=== PATIENT | male | born 1935 | race Caucasian/White ===

== ENCOUNTER 2017-10-19 13:02 | Emergency (ER) | payer MEDICARE, OTHER ==
[~2017-10-19] VITALS: Ht 182.9 cm; Wt 96.2 kg
[~2017-10-19 13:02] MED LIST: GAS-X80 MG PO; GUAIATUSSIN AC10 ML PO; NORCO 5-325 TA1 EACH PO; ZOFRAN4 MG PO
[2017-10-19] MEDS ORDERED: TYLENOL325 MG PO (13:14)
[2017-10-19] MEDS ORDERED: ASPIR-LOW81 MG PO (13:15)
--- OUTSIDE RECORDS SUMMARY | 2017-10-19 13:27 | XMS | Clinical Summary ---
Demographics + + + | Address | [address] [place] [address] | | | [place] [address] | + + + | Home Phone | | + + + | Preferred Language | Unknown | + + + | Marital Status | | + + + | Religion Affiliation | JEH | + + + | Race | White | + + + | Ethnic Group | Not or | + + + Author + + + | Author | [facility] | + + + | Organization | [facility] | + + + | Address | Unknown | + + + | Phone | Unavailable | + + + Support + + + + + | Name | Relationship | Address | Phone | + + + + + | AGATA ANNE | ECON | [address] | | | | | [place] | | | | | [address] | | + + + + + Care Team Providers + +------+ + | Care Debate Director Name | Role | Phone | + +------+ + | Angel Carver MD | PP | | + +------+ + Source Comments MASHA is fully live on both [facility] Allergies + + + + + + | Active Allergy | Reactions | Severity | Noted | Comments | | | | | Date | | + + + + + + | Penicillins | Hives | | 03/15/20 | | | | | | 09 | | + + + + + + Current Medications + + +-------+---------+------+------+-------+ | Prescription | Sig. | Disp. | Refills | Star | End | Statu | | | | | | t | Date | s | | | | | | Date | | | + + +-------+---------+------+------+-------+ | Aspirin 81 mg Oral | Take 325 mg by mouth | | | | | Activ | | Tablet | once daily. | | | | | e | + + +-------+---------+------+------+-------+ | OMEPRAZOLE | Take by mouth. | | | | | Activ | | (PRILOSEC ORAL) | | | | | | e | + + +-------+---------+------+------+-------+ | ondansetron 8 mg | Take 1 Tab by mouth | 30 | 10 | 08/1 | | Activ | | Oral Tablet | every eight hours as | | | 1/20 | | e | | | needed for | | | 09 | | | | | nausea/vomiting. 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 | + + + | Cholelithiasis with cholecystitis | 05/19/2009 | + + + | Gastric outlet obstruction | 04/11/2009 | + + + Social History + +-------+ +--------+------+ | Tobacco Use | Types | Packs/Day | Years | Date | | | | | Used | | + +-------+ +--------+------+ | Never Smoker | | | | | + +-------+ +--------+------+ + + +---------+ + | Alcohol Use | Drinks/We | oz/Week | Comments | | | ek | | | + + +---------+ + | No | | | | + + +---------+ + + + + | Sex Assigned at | Date Recorded | | | | + + + | Not on file | | + + + Last Filed Vital Signs + + + + | Vital Sign | Reading | Time Taken | + + + + | Blood Pressure | 124/70 | 06/15/2010 1:01 PM PDT | + + + + | Pulse | 75 | 06/15/2010 1:01 PM PDT | + + + + | Temperature | 36.9 C (98.4 F) | 06/15/2010 1:01 PM PDT | + + + + | Respiratory Rate | 12 | 06/15/2010 1:01 PM PDT | + + + + | Oxygen Saturation | 95% | 05/19/2009 12:55 PM PDT | + + + + | Inhaled Oxygen | - | - | | Concentration | | | + + + + | Weight | 101.1 kg (222 lb | 06/15/2010 1:01 PM PDT | | | 12.8 oz) | | + + + + | Height | 175.3 cm (5' 9") | 05/19/2009 11:43 AM PDT | + + + + | Body Mass Index | 32.9 | 06/15/2010 1:01 PM PDT | + + + + Plan of Treatment + + + + + | Health Maintenance | Due Date | Last Done | Comments | + + + + + | INFLUENZA VACCINE | | | | | (FLU SHOT) | 7 | | | + + + + + Results Not on filefrom Last 3 Months
--- OUTSIDE RECORDS SUMMARY | 2017-10-19 13:27 | XMS | Clinical Summary ---
Demographics + + + | Address | [address] [place] [address] | | | [place] [address] | + + + | Home Phone | | + + + | Preferred Language | Unknown | + + + | Marital Status | | + + + | Muslim Affiliation | JEH | + + + [...] + | AGATA ANNE | ECON | [address] | | | | | [place] | | | | | [phone] | | + + + + + Care Team Providers + +------+ + | Care Rental Sales Representative Name | Role | Phone | + +------+ + | Angel Carver MD | PP | | + +------+ + Source Comments MASHA is fully live on both [facility] and [facility] Allergies + + + + + + [...]
== END 2017-10-19 14:55 | disposition home or self-care (01) ==
LOC: ED 13:02
DX: S00.03XA Contusion of scalp, initial encounter (principal); S20.229A Contusion of unspecified back wall of thorax, initial encounter; Z86.73 Personal history of transient ischemic attack (TIA), and cerebral infarction without residual deficits; Z88.0 Allergy status to penicillin; Z79.82 Long term (current) use of aspirin; Z87.442 Personal history of urinary calculi; W01.0XXA Fall on same level from slipping, tripping and stumbling without subsequent striking against object, initial encounter
CPT/HCPCS: 70450; 72080; 99284

== ENCOUNTER 2021-06-16 17:40 | Emergency (ER) | payer MEDICARE, OTHER ==
[~2021-06-16] VITALS: Ht 182.9 cm; Wt 105.3 kg
[~2021-06-16 17:40] MED LIST changes: +ASPIR-LOW81 MG PO; +TYLENOL325 MG PO
== END 2021-06-16 19:55 | disposition short-term general hospital (02) ==
LOC: ED 17:40
PROC: 0T2BX0Z Change Drainage Device in Bladder, External Approach (ICD-10-PCS; principal; 2021-06-16)
DX: I63.9 Cerebral infarction, unspecified (principal); I48.91 Unspecified atrial fibrillation; R29.704 NIHSS score 4; Z20.822 Contact with and (suspected) exposure to COVID-19; Z88.0 Allergy status to penicillin
CPT/HCPCS: 51702; 70450; 70496; 70498; 71045; 73030; 80053; 84484; 85025; 85610; 85730; 93005; 93010; 99285-25; J2997; Q3014; Q9967; U0003

== ENCOUNTER 2022-12-07 12:45 | Emergency (ER) | payer MEDICARE, OTHER ==
[~2022-12-07] VITALS: Ht 182.9 cm; Wt 105.2 kg
[2022-12-07] MEDS ORDERED: ATORVASTATIN CA20 MG PO (14:23)
[2022-12-07] MEDS ORDERED: ELIQUIS5 MG PO (14:23)
[2022-12-07] MEDS ORDERED: METOPROLOL SUC100 MG PO (14:24)
--- NOTE | 2022-12-07 20:39 | EKG ---
[facility] [address] [facility] [place] [address] Signed Atrial fibrillation with premature ventricular or aberrantly conducted complexes Abnormal ECG No previous ECGs available Confirmed by NELY DIAZ MD ([id number]) on 12/07/2022 8:38:58 PM Electronically Signed By: NELY DAIZ MD 12/07/222038 PATIENT NAME: JAMES CHUNG Electrocardiogram DATE OF : 37 PHYSICIAN: NELY DIAZ MD REPORT #: [id number] REPORT IS CONFIDENTIAL AND NOT TO BE RELEASED WITHOUT AUTHORIZATION
== END 2022-12-07 18:26 | disposition home or self-care (01) ==
LOC: ED 12:45
DX: R55 Syncope and collapse (principal); R00.2 Palpitations; I48.91 Unspecified atrial fibrillation; Z79.899 Other long term (current) drug therapy; Z79.01 Long term (current) use of anticoagulants; Z88.0 Allergy status to penicillin; Z20.822 Contact with and (suspected) exposure to COVID-19
CPT/HCPCS: 36415; 80053; 81003; 83735; 84484; 85025; 87502; 93005; 93010; U0003

== ENCOUNTER 2024-05-11 12:50 | Observation (INO) | payer MEDICARE, OTHER ==
[~2024-05-11] VITALS: Ht 182.9 cm; Wt 98.9 kg
[~2024-05-11 12:50] MED LIST changes: +ATORVASTATIN CA20 MG PO; +ELIQUIS5 MG PO; +METOPROLOL SUC100 MG PO
[2024-05-11 13:05] LABS: BASOPHILS 0.8 % (0-2); HEMATOCRIT 43.1 % (35.0-50.0); HEMOGLOBIN 14.8 g/dL (12.0-18.0); LYMPHOCYTES 27.1 % (24-44); MCHC 34.4 g/dl (30-36); MONOCYTES 11.4 % (0-12); NEUTROPHILS 55.7 % (39-80); PLATELET COUNT 262 K/uL (140-440); RBC 4.64 M/ul (4.3-5.7); RDW 13.9 (10.5-15.0)
[2024-05-11 13:21] LABS: ALBUMIN 3.5 g/dL (3.4-5.0); ALBUMIN/GLOBULIN RATIO 1.09 (1.1-2.4); ANION GAP 10.8 (7-21); BUN/CREATININE RATIO 10.06 (6.0-28.6); CALCIUM 8.9 mg/dL (8.5-10.1); CREATININE, SERUM 1.49 mg/dL (0.70-1.30); MAGNESIUM 1.8 mg/dL (1.8-2.4); POTASSIUM 4.8 mmol/L (3.5-5.1); PROTEIN, TOTAL 6.7 g/dL (6.4-8.2)
[2024-05-11 13:22] LABS: INR 1.4 (0.80-1.30); PROTIME 16.3 Sec (11.2-14.2)
[2024-05-11] MEDS ORDERED: ondansetron HCL 4 MG/2 ML VIAL IV PRN (17:30)
[2024-05-11] MEDS ORDERED: ACETAMINOPHEN 325 MG TAB PO PRN (17:30)
[2024-05-11 18:55] VITALS: BP 131/86
--- NOTE | 2024-05-11 19:00 | NUR ---
PT ARRIVED TO MS ROOM 122 VIA ED STRETCHER - REPORT RECEIVED FROM LOUANN HOLLIDAY. PT PIVOT TRANSFERED TO BED WITH SOME DIZZINESS. PT AND FAMILY ORIENTED TO ROOM AND CALL LIGHT. VSS.
--- NOTE | 2024-05-11 19:01 | EKG ---
[facility] [address] [place] [address] Signed Atrial fibrillation Abnormal ECG When compared with ECG of 07-DEC-2022 14:36, No significant change was found Confirmed by Terence Denise MD () on 05/11/2024 7:01:09 PM Electronically Signed By: TERENCE DENISE MD 05/11/241900 PATIENT NAME: JAMES CHUNG Electrocardiogram DATE OF : 37 PHYSICIAN: TERENCE DENISE MD REPORT #: [id number] REPORT IS CONFIDENTIAL AND NOT TO BE RELEASED WITHOUT AUTHORIZATION
--- NOTE | 2024-05-11 20:31 | NUR ---
Pt report received from MG Coleman at 1858 hours. Pt is resting supine in bed, watching television, requests blanket for his feet, which was provided. Pt assessment done at this time. Pt denies further needs, side rails up x4, call light in reach. white board updated.
[2024-05-11 21:00] VITALS: BP 114/75
--- NOTE | 2024-05-11 21:03 | NUR ---
ROLL HAULER OBTAINED VITALS AND INTAKE. NO NEW OUTPUT NOTED. PT STATES NO NEEDS AT THIS TIME. CALL LIGHT WITHIN REACH.
--- NOTE | 2024-05-11 21:48 | NUR ---
REMAINING ADMISSION COMPLETED AT THIS TIME, pt AWOKE EASILY TO VOICE AND ASSISTED WITH ANSWERING QUESTIONS-GULKANA. PER pt, TOOK HEARING AIDES HOME TO BE CHARGED. WALLET AND WATCH IN pt ROOM LOCKBOX AND pt HAS WEDDING BAND IN PLACE. BED ALARM ON FOR SAFETY AND CALL LIGHT IN REACH. PRIMARY RN UPDATED AND AWARE.
--- NOTE | 2024-05-11 23:30 | NUR ---
PC to Dr. Graham to notify him of CCU's concern about PVCs on the tele for this patient. They advised that at 1955 hours, he had 25 PVCs/min, 2006 hours 18 PVCs/min, and at 2017 hours 19 PVCs/min. Dr. Graham advised we will continue to monitor the pt as he is afib at baseline.
[2024-05-12] VITALS (10 sets, daily range): BP systolic 110–130; BP diastolic 52–80
--- NOTE | 2024-05-12 05:29 | NUR ---
MANUAL TESTER OBTAINED VITALS AND INTAKE. NO NEW OUTPUT AT THIS TIME. PT STATES NO OTHER NEEDS AT THIS TIME. CALL LIGHT WITHIN REACH.
[2024-05-12 05:41] LABS: BASOPHILS 0.8 % (0-2); EOSINOPHILS 4.5 % (0-6); HEMATOCRIT 42.4 % (35.0-50.0); HEMOGLOBIN 14.7 g/dL (12.0-18.0); LYMPHOCYTES 22.3 % (24-44); MCH 32.7 (27-36); MCHC 34.8 g/dl (30-36); MCV 94.1 fl (81-99); MONOCYTES 9.6 % (0-12); NEUTROPHILS 62.8 % (39-80); PLATELET COUNT 230 K/uL (140-440); RBC 4.51 M/ul (4.3-5.7); RDW 13.8 (10.5-15.0)
[2024-05-12 05:56] LABS: ALBUMIN 3.3 g/dL (3.4-5.0); ALBUMIN/GLOBULIN RATIO 1.06 (1.1-2.4); BILIRUBIN, TOTAL 1.2 ng/dL (0.2-1.0); BUN/CREATININE RATIO 9.02 (6.0-28.6); CALCIUM 8.9 mg/dL (8.5-10.1); CREATININE, SERUM 1.44 mg/dL (0.70-1.30); MAGNESIUM 1.8 mg/dL (1.8-2.4); PROTEIN, TOTAL 6.4 g/dL (6.4-8.2)
[2024-05-12 05:58] LABS: CHOLESTEROL/HDL RATIO 2.2
--- NOTE | 2024-05-12 07:20 | NUR ---
RECIEVED SHIFT REPORT. PT IS AWAKE IN BED, A&O X4 AT THIS TIME. DENIES NEEDS. CALL LIGHT IN REACH.
--- NOTE | 2024-05-12 08:11 | NUR ---
Provided warm blanket for Pt and fresh ice water. No other needs expressed by Pt. Call light left in reach.
[2024-05-12] MEDS ORDERED: PHARMACY RENAL DOSE ADJUSTMENT 1 DOSE MISC PO SCH (12:00)
--- NOTE | 2024-05-12 13:53 | NUR ---
IN TO ROUND ON PT AND PERFORM ORTHOSTATIC BLOOD PRESSURE TESTING. PT FELT "FUNNY" SITTING ON SIDE OF BED BUT THE FEELING WENT AWAY. PT DENIES DIZZINESS OR LIGHTHEADEDNESS WHILE STANDING, PT STANDS FULL THREE MINUTES WITHOUT COMPLAINT. PT AMBULATES TO CHAIR WITH FWW. PT HEART RATE NOTED TO RANGE 38-84 THROUGHOUT ORTHOSTATIC TESTING. CALL LIGHT IN REACH, NO OTHER NEEDS NOTED AT THIS TIME.
--- NOTE | 2024-05-12 22:00 | NUR ---
Resting, awakens easily, no c/o CP or SOB, mild weakness L tap puller, alet and oriented to all. Tele#[address] clear lungs, abd large, kandi, LBM today, edema at ankles, SL patent. tolerating liquids well, no c/o dizziness or n/v at this time, turns and repositions self in bed, Has used urinal. in room
[2024-05-13] VITALS (8 sets, daily range): BP systolic 109–129; BP diastolic 57–83
--- NOTE | 2024-05-13 02:36 | NUR ---
awake, no c/o CP, alet and oriented, Neuros wnl, Light L sided weakness chronic present. Up to BRP, voided, back to bed, Pt wears a L knee brace "is chronic" stated, SCDS off at his request at this time. Back to bed, minimum of assist/fww. cooperatie with second assessment. Tele#[address], afib. rooming in
--- NOTE | 2024-05-13 06:17 | NUR ---
pT AWAKENS EASILY, TELE#[address], AFIB. PT DENIES SOB AND OR CP. TURNS AND REPOSITIONS SELF IN BED. SL PATENT. NO C/O DIZZINESS OR LIGHTHEADNESS. TOLERATING SIPS OF FLUIDS. VOIDED QS EARLIER ON SHIFT 1PA/FWW. L SIDED RESIDUAL WEAKNESS PRESENT CHRONIC. NEURO CHECKS WNL OTHERWISE, ALERT AND ORIENTED TO ALL. SMILING NOW AND STILL SLOW RESPONSE TO WUESTIONS, [place], NO HEARING AIDS AT THIS TIME. HOME l KNEE BRACE IN PLACE AT BEDSIDE
--- NOTE | 2024-05-13 08:09 | NUR ---
RECEIVED SHIFT REPORT. PT IS RESTING IN BED, EYES CLOSED, BREATHING EVEN AND UNLABORED.CALL LIGHT IN REACH.
--- NOTE | 2024-05-13 11:03 | NUR ---
MORNING ASSESSMENT COMPLETE. PT FINISHED WITH THERAPY AND HAS NO COMPLAINTS. PT SITTING ON THE SIDE OF THE BED, FAMILY AT BEDSIDE. DENIES NEEDS. CALL LIGHT IN REACH. DISCUSSED WITH PT THAT PHYSICAL THERAPY WILL TALK TO MD REGARDING THERAPY SESSION.
--- NOTE | 2024-05-13 15:00 | NUR ---
IN ROOM WITH MG FLORENTINO TO PERFORM AFTERNOON ASSESSMENT. PATIENT AFFECT APPROPRIATE. A&OX4. SEE NEURO ASSESSMENT. FAMILY IN ROOM. CALL LIGHT IN REACH. PATIENT DENIES ADDITIONAL NEEDS AT THIS TIME.
[2024-05-13] MEDS ORDERED: DERMACINRX LID1 EACH TD (15:25)
--- NOTE | 2024-05-13 15:52 | NUR ---
PATIENT IN BED AT THIS TIME. CALL LIGHT WITHIN REACH, NO FURTHER NEEDS AT THIS TIME.
--- NOTE | 2024-05-13 16:22 | NUR ---
DISCUSSED DISCHARGE PAPERWORK WITH PT AND FAMILY. ALL QUESTIONS ANSWERED. NIH RESULTED 0.
== END 2024-05-13 16:41 | disposition home or self-care (01) ==
LOC: ED 12:50 → MS 12:51
PROVIDERS: Emergency Medicine; ADMIT Family Medicine; ATTEND Family Medicine
DX: G45.9 Transient cerebral ischemic attack, unspecified (principal); I48.91 Unspecified atrial fibrillation; R91.1 Solitary pulmonary nodule; I12.9 Hypertensive chronic kidney disease with stage 1 through stage 4 chronic kidney disease, or unspecified chronic kidney disease; N18.31 Chronic kidney disease, stage 3a; Z88.0 Allergy status to penicillin; Z79.01 Long term (current) use of anticoagulants; Z79.899 Other long term (current) drug therapy
CPT/HCPCS: 36415; 70450; 70496; 70498; 71045; 80053; 80061; 83036; 83735; 84100; 84484; 85025; 85610; 93005; 93010; 93306; 97110; 97162; 97530; 99285-25; G0378

== ENCOUNTER 2024-05-21 16:37 | Emergency (ER) | payer MEDICARE, OTHER ==
[~2024-05-21] VITALS: Ht 182.9 cm; Wt 90.0 kg
[~2024-05-21 16:37] MED LIST changes: +DERMACINRX LID1 EACH TD
--- OUTSIDE RECORDS SUMMARY | 2024-05-21 16:40 | XMS ---
PreManage Notification: JAMES CHUNG Security Hydrogen Cell Tender Events No recent Security Events currently on file CRITERIA MET - [facility] - 2 Visits in 30 Days CARE PROVIDERS There are no care providers on record at this time. Amanda has no Care Guidelines for this patient. Kasey VISIT COUNT (12 MO.) 2 [facility] [place] [facility] TOTAL 2 NOTE: Visits indicate total known visits. ED/C VISIT TRACKING (12 MO.) 05/21/2024 16:37 [facility] [place] TYPE: Emergency COMPLAINT: - WEAKNESS 05/11/2024 12:50 [facility] [place] TYPE: Emergency COMPLAINT: - DIZZY INPATIENT VISIT TRACKING (12 MO.) 05/11/2024 12:51 [facility] [place] TYPE: Observation COMPLAINT: - DIZZINESS DIAGNOSES: - Allergy status to penicillin - Chronic kidney disease, stage 3a - Dizziness and giddiness - Hypertensive chronic kidney disease with stage 1 through stage 4 chronic kidney disease, or unspecified chronic kidney disease - FDC (current) use of anticoagulants - Other termite treater helper (current) drug therapy - Solitary pulmonary nodule - Transient cerebral ischemic attack, unspecified - Unspecified atrial fibrillation [email or web address]
[2024-05-21] MEDS ORDERED: SODIUM CHLORIDE 0.9% 1,000 ML IV ONE (16:45)
[2024-05-21] MEDS ORDERED: CEFTRIAXONE/SODIUM CHLORIDE 2 GM/100 ML PIGGYBACK IV ONE (16:45)
[2024-05-21 17:00] LABS: BASOPHILS 0.3 % (0-2); EOSINOPHILS 1.4 % (0-6); HEMOGLOBIN 14.8 g/dL (12.0-18.0); LYMPHOCYTES 9.8 % (24-44); MCHC 34.5 g/dl (30-36); MCV 92.7 fl (81-99); MONOCYTES 11.3 % (0-12); NEUTROPHILS 77.2 % (39-80); PLATELET COUNT 249 K/uL (140-440); RBC 4.64 M/ul (4.3-5.7); RDW 13.9 (10.5-15.0)
[2024-05-21] MEDS ORDERED: ACETAMINOPHEN 500 MG TAB PO ONE (17:00)
[2024-05-21] MEDS ORDERED: AZITHROMYCIN/DEXTROSE 500 MG/250 ML BAG IV ONE (17:00)
[2024-05-21] MEDS ORDERED: SODIUM CHLORIDE 0.9% 1,000 ML IV PRN (17:00)
[2024-05-21 17:13] LABS: PARTIAL THROMBOPLASTIN TIME 37.5 Sec (22.9-41.3)
[2024-05-21 17:14] LABS: INR 1.63 (0.80-1.30); PROTIME 18.5 Sec (11.2-14.2)
[2024-05-21 17:20] LABS: ALBUMIN 3.3 g/dL (3.4-5.0); ALBUMIN/GLOBULIN RATIO 0.94 (1.1-2.4); ANION GAP 12.2 (7-21); BILIRUBIN, TOTAL 1.3 ng/dL (0.2-1.0); BUN/CREATININE RATIO 7.74 (6.0-28.6); CALCIUM 8.5 mg/dL (8.5-10.1); CREATININE, SERUM 1.55 mg/dL (0.70-1.30); POTASSIUM 4.2 mmol/L (3.5-5.1); PROTEIN, TOTAL 6.8 g/dL (6.4-8.2)
[2024-05-21 17:23] LABS: LACTIC ACID, BLOOD 2.1 mmol/L (0.4-2.0)
[2024-05-21 18:41] LABS: INFLUENZA B NAA NEGATIVE (NEGATIVE); RESPIRATORY SYNCYTIAL VIR NAA NEGATIVE (NEGATIVE)
[2024-05-21 18:52] LABS: BILIRUBIN, URINE NEGATIVE (negative); BLOOD/HGB, URINE NEGATIVE (Negative); KETONE, URINE NEGATIVE (Negative); LEUK ESTERASE, URINE NEGATIVE (negative); NITRITE, URINE NEGATIVE (negative)
[2024-05-21 19:07] LABS: LACTIC ACID, BLOOD 1.5 mmol/L (0.4-2.0)
[2024-05-21] MEDS ORDERED: PAXLOVID 300-11 EAC1 PO (20:22)
[2024-05-21 21:08] VITALS: BP 118/84
--- NOTE | 2024-05-22 13:52 | EKG ---
[facility] [address] [facility] [place] [address] Signed Atrial fibrillation with rapid ventricular response with premature ventricular or aberrantly conducted complexes Abnormal ECG When compared with ECG of 11-MAY-2024 13:39, No significant change was found Confirmed by Gema Brown MD ([id number]) on 05/22/2024 1:51:59 PM Electronically Signed By: GEMA BROWN MD 05/22/24 1352 PATIENT NAME: JAMES CHUNG Electrocardiogram DATE OF : 37 PHYSICIAN: GEMA BROWN MD REPORT #: [id number] REPORT IS CONFIDENTIAL AND NOT TO BE RELEASED WITHOUT AUTHORIZATION
== END 2024-05-21 21:05 | disposition home or self-care (01) ==
LOC: ED 16:37
PROVIDERS: Emergency Medicine
DX: U07.1 COVID-19 (principal); I48.91 Unspecified atrial fibrillation; Z88.0 Allergy status to penicillin; Z79.01 Long term (current) use of anticoagulants; Z79.899 Other long term (current) drug therapy
CPT/HCPCS: 36415; 51701; 71045; 80053; 81003; 83605; 84484; 85025; 85610; 85730; 87040; 87502; 93005; 93010; 96368; 99285-25; A9270; J0456; J0696; J7030; U0002

== ENCOUNTER 2025-02-15 10:20 | Emergency (ER) | payer MEDICARE, OTHER ==
[~2025-02-15] VITALS: Ht 182.9 cm; Wt 100.0 kg
[~2025-02-15 10:20] MED LIST changes: +PAXLOVID 300-11 EAC1 PO
[2025-02-15 11:15] LABS: BASOPHILS 0.6 % (0.2-1.2); EOSINOPHILS 3.7 % (0.8-7.0); HEMATOCRIT 43.4 % (40.1-51.0); HEMOGLOBIN 14.4 g/dL (13.7-17.5); LYMPHOCYTES 28.1 % (21.8-53.1); MCH 31.1 PG (25.7-32.2); MCHC 33.2 g/dL (32.3-36.5); MCV 93.7 fL (79.0-92.2); MONOCYTES 9.8 % (5.3-12.2); NEUTROPHILS 57.6 % (34.0-67.9); PLATELET COUNT 227 K/uL (163-337); RBC 4.63 M/uL (4.63-6.08)
[2025-02-15 11:31] LABS: ALBUMIN 3.3 g/dL (3.4-5.0); ALBUMIN/GLOBULIN RATIO 1.03 (1.1-2.4); ANION GAP 13.3 (7-21); BILIRUBIN, TOTAL 1.1 mg/dL (0.2-1.0); BUN/CREATININE RATIO 11.65 (6.0-28.6); CALCIUM 8.7 mg/dL (8.5-10.1); CREATININE, SERUM 1.63 mg/dL (0.70-1.30); POTASSIUM 4.3 mmol/L (3.5-5.1); PROTEIN, TOTAL 6.5 g/dL (6.4-8.2)
[2025-02-15 12:39] LABS: BILIRUBIN, URINE NEGATIVE (negative); BLOOD/HGB, URINE TRACE-I (Negative); KETONE, URINE NEGATIVE (Negative); LEUK ESTERASE, URINE TRACE (negative); NITRITE, URINE NEGATIVE (negative); PH, URINE 7.5 (5-7)
[2025-02-15 12:49] LABS: RED BLOOD CELLS, URINE 0-1 /hpf (0-5)
[2025-02-15 12:50] LABS: BACTERIA, URINE NONE SEEN /hpf (negative); CASTS, URINE NONE SEEN \\lpf; COLLECTION TYPE, URINE CLEAN CATCH; CRYSTALS, URINE NONE SEEN (0-1+); EPITHELIAL CELLS, URINE SQUAMOUS 1+ /lpf (0-1+); REFLEX CULTURE, URINE No (No)
[2025-02-15] MEDS ORDERED: FLOMAX0.4 MG PO (13:24)
[2025-02-15 13:46] VITALS: BP 120/78
== END 2025-02-15 13:46 | disposition home or self-care (01) ==
LOC: ED 10:20
PROVIDERS: Emergency Medicine
DX: K59.00 Constipation, unspecified (principal); N40.0 Benign prostatic hyperplasia without lower urinary tract symptoms; I48.91 Unspecified atrial fibrillation; Z87.442 Personal history of urinary calculi; Z86.73 Personal history of transient ischemic attack (TIA), and cerebral infarction without residual deficits; Z79.01 Long term (current) use of anticoagulants; Z88.0 Allergy status to penicillin; Z88.8 Allergy status to other drugs, medicaments and biological substances
CPT/HCPCS: 36415; 51798; 74176; 80053; 81001; 85025; 99284-25